=== PATIENT | female | born 1965 | race African-American/Black ===

== ENCOUNTER 2018-03-19 10:33 | Inpatient (IN) ==
[2018-03-19] MEDS ORDERED: ONDANSETRON 4 MG/2 ML VIAL IV STA (10:57)
[2018-03-19] MEDS ORDERED: fentaNYL 100 MCG/2 ML VIAL IV STA (10:59)
[2018-03-19 11:08] LABS: Basophils % 0.2 % (0.0-0.8); Eosinophils # 0.2 10*3/uL (0.0-0.87); Eosinophils % 1.9 % (0.00-10.9); Hematocrit 32.6 VOL% (35.7-47.0); Hemoglobin 11.1 GM/DL (12.0-16.0); Immature Granulocytes % 0.3 %; Immature Granulocytes Absolute 0.04 #; Lymphocytes # 1.4 10*3/uL (1.4-4.0); Lymphocytes % 12.4 % (21.3-54.2); Mean Corpuscular Hemoglobin 25 PG (27-34); Mean Corpuscular Volume 74.4 FL (87-102); Mean Platelet Volume 10.7 FL (9.6-12.0); Monocytes # 0.2 10*3/uL (0.11-0.8); Monocytes % 1.9 % (1.7-12.7); Neutrophils # 9.7 10*3/uL (1.4-7.4); Neutrophils % 83.3 % (38.7-73.9); Platelet Count 205 T/CUMM (130-400); Red Blood Count 4.38 MC/CUMM (3.8-5.5); Red Cell Distribution Width 13.9 % (9.3-17.3); White Blood Count 11.6 T/CUMM (4-12)
[2018-03-19 11:22] LABS: INR 1.1; PT Patient Result 11.2 SECS; Partial Thromboplastin Time 24.8 SECS (0-40)
[2018-03-19 11:50] LABS: Alanine Aminotransferase 23 U/L (13-56); Albumin 3.5 G/DL (3.4-5.0); Alkaline Phosphatase 117 U/L (45-117); Aspartate Amino Transferase 24 U/L (0-37); Blood Urea Nitrogen 17 MG/DL (7-18); Calcium 9.1 MG/DL (8.5-10.1); Glucose 147 MG/DL (74-106); Osmolality,Calculated 281.5 MOS/KG (273-304); Potassium 3.8 MMOL/L (3.5-5.1); Sodium 139 MMOL/L (136-145); Total Protein 7.8 G/DL (6.4-8.3)
[2018-03-19] MEDS ORDERED: KETOROLAC 30 MG/1 ML VIAL IV STA (11:51)
[2018-03-19] MEDS ORDERED: HYDROmorphone 2 MG/1 ML VIAL ONE (11:53)
[2018-03-19] MEDS ORDERED: HYDROmorphone 2 MG/1 ML VIAL IV STA (11:53)
[2018-03-19] MEDS ORDERED: SODIUM CHLORIDE 0.9% 1,000 ML IV STA (12:02)
[2018-03-19] MEDS ORDERED: ONDANSETRON 4 MG/2 ML VIAL IV PRN (12:21)
[2018-03-19] MEDS ORDERED: PROMETHAZINE 25 MG/1 ML VIAL IM PRN (12:21)
[2018-03-19 13:12] LABS: Apearance,Urine CLEAR (Clear); Bilirubin,Urine Negative (Negative); Blood, Urine Small mg/dL (Negative); Glucose,Urine (UA) Negative (Negative); Ketones,Urine Negative (Negative); Mucus,Urine Occasional /LPF (Occasional); Nitrite,Urine Negative (Negative); Protein,Urine Negative; RBC,Urine 3 /HPF (0-4); Squamous Epithelial Cell,Urine Occasional /HPF (0-10); Urine Color Straw (Yellow); Urine Specific Gravity 1.008 (1.001-1.035); Urine Urobilinogen < 2.0 EU/DL (0.2-1.0); WBC,Urine 14 /HPF (0-6)
[2018-03-19] MEDS ORDERED: cefTRIAXone 1,000 MG VIAL ONE (13:16)
[2018-03-19] MEDS: LACTATED RINGERS 1,000 ML IV SCH (13:26)
[2018-03-19] MEDS: cefTRIAXone 1,000 MG in SYRINGE 1 EACH IV SCH (13:51)
[2018-03-19] MEDS ORDERED: ACETAMINOPHEN INJ 1,000 MG in PREMIX 1 EACH IV ONE (14:23)
[2018-03-19] MEDS ORDERED: ACETAMINOPHEN 1,000 MG/100 ML VIAL IV ONE (14:23)
[2018-03-19] MEDS ORDERED: fentaNYL 100 MCG/2 ML VIAL ONE (14:24)
[2018-03-19] MEDS ORDERED: PROPOFOL 200 MG/20 ML VIAL IV ONE (14:24)
[2018-03-19] MEDS ORDERED: MIDAZOLAM 2 MG/2 ML VIAL ONE (14:24)
[2018-03-19] MEDS ORDERED: SUCCINYLCHOLINE 200 MG/10 ML VIAL ONE (14:25)
[2018-03-19] MEDS ORDERED: SEVOFLURANE 1 UNIT/15 MINUTE INH ONE (14:25)
[2018-03-19] MEDS ORDERED: ROCURONIUM 100 MG/10 ML VIAL IV ONE (14:25)
[2018-03-19] MEDS ORDERED: ONDANSETRON 4 MG/2 ML VIAL ONE (14:25)
[2018-03-19] MEDS ORDERED: METOPROLOL TARTRATE 5 MG/5 ML VIAL IV ONE (14:25)
[2018-03-19] MEDS ORDERED: PHENYLEPHRINE 1 MG/10 ML SYRINGE IV ONE (14:25)
[2018-03-19] MEDS ORDERED: MORPHINE 4 MG/1 ML VIAL IV PRN (16:15)
[2018-03-19] MEDS ORDERED: diphenhydrAMINE 50 MG/1 ML VIAL IV PRN (16:15)
[2018-03-19] MEDS: ACETAMINOPHEN 325 MG TABLET PO PRN (16:57)
[2018-03-19] MEDS: SODIUM CHLORIDE 0.9% 1,000 ML IV SCH (16:57)
[2018-03-20] MEDS: SODIUM CHLORIDE 0.9% 1,000 ML IV SCH ×3 (03:45→21:50)
[2018-03-20] MEDS: ACETAMINOPHEN 325 MG TABLET PO PRN ×3 (04:51→18:05)
[2018-03-20 07:06] LABS: Basophils % 0.2 % (0.0-0.8); Eosinophils # 0.1 10*3/uL (0.0-0.87); Hematocrit 27.8 VOL% (35.7-47.0); Hemoglobin 9.5 GM/DL (12.0-16.0); Immature Granulocytes % 0.6 %; Immature Granulocytes Absolute 0.08 #; Lymphocytes # 0.7 10*3/uL (1.4-4.0); Lymphocytes % 5.3 % (21.3-54.2); Mean Corpuscular HGB Conc 34.2 GM/DL (32-36); Mean Corpuscular Hemoglobin 26 PG (27-34); Mean Corpuscular Volume 75.3 FL (87-102); Mean Platelet Volume 11.3 FL (9.6-12.0); Monocytes # 0.4 10*3/uL (0.11-0.8); Monocytes % 3.2 % (1.7-12.7); Neutrophils # 11.3 10*3/uL (1.4-7.4); Neutrophils % 89.7 % (38.7-73.9); Platelet Count 148 T/CUMM (130-400); Red Blood Count 3.69 MC/CUMM (3.8-5.5); White Blood Count 12.6 T/CUMM (4-12)
[2018-03-20 07:31] LABS: Calcium 7.9 MG/DL (8.5-10.1); Osmolality,Calculated 277.7 MOS/KG (273-304); Potassium 4.1 MMOL/L (3.5-5.1)
[2018-03-20] MEDS: LACTATED RINGERS 1,000 ML IV SCH (12:50)
[2018-03-20] MEDS: cefTRIAXone 1,000 MG in SYRINGE 1 EACH IV SCH (12:50)
[2018-03-21] MEDS: SODIUM CHLORIDE 0.9% 1,000 ML IV SCH ×3 (04:02→20:21)
[2018-03-21] MEDS: ACETAMINOPHEN 325 MG TABLET PO PRN (07:55)
[2018-03-21] MEDS: cefTRIAXone 1,000 MG in SYRINGE 1 EACH IV SCH (12:00)
[2018-03-21] MEDS ORDERED: MAGNESIUM HYDROXIDE SUSP 30 ML UDCUP PO PRN (13:46)
[2018-03-22] MEDS: ACETAMINOPHEN 325 MG TABLET PO PRN (02:14)
[2018-03-22] MEDS: SODIUM CHLORIDE 0.9% 1,000 ML IV SCH (07:56)
[2018-03-22 08:31] LABS: Basophils % 0.2 % (0.0-0.8); Eosinophils # 0.3 10*3/uL (0.0-0.87); Eosinophils % 5.9 % (0.00-10.9); Hematocrit 24.7 VOL% (35.7-47.0); Hemoglobin 8.2 GM/DL (12.0-16.0); Immature Granulocytes % 0.3 %; Immature Granulocytes Absolute 0.02 #; Lymphocytes # 1.2 10*3/uL (1.4-4.0); Lymphocytes % 19.9 % (21.3-54.2); Mean Corpuscular HGB Conc 33.2 GM/DL (32-36); Mean Corpuscular Hemoglobin 25 PG (27-34); Mean Platelet Volume 11.4 FL (9.6-12.0); Monocytes # 0.5 10*3/uL (0.11-0.8); Monocytes % 8.8 % (1.7-12.7); Neutrophils # 3.7 10*3/uL (1.4-7.4); Neutrophils % 64.9 % (38.7-73.9); Platelet Count 129 T/CUMM (130-400); Red Blood Count 3.25 MC/CUMM (3.8-5.5); Red Cell Distribution Width 14.2 % (9.3-17.3); White Blood Count 5.8 T/CUMM (4-12)
[2018-03-22] MEDS ORDERED: LACTULOSE 20 GM/30 ML UDCUP PO ONE (08:36)
[2018-03-22 08:42] LABS: Potassium 4.1 MMOL/L (3.5-5.1)
[2018-03-22] MEDS: cefTRIAXone 1,000 MG in SYRINGE 1 EACH IV SCH (11:31)
[2018-03-22 15:34] VITALS: BP 128/88
== END 2018-03-22 15:15 | disposition home or self-care (01) | DRG 690 ==
LOC: N.ED 10:33 → N.SDSINP 12:21 → N.5E 13:06
PROVIDERS: ADMIT Surgery; ATTEND Surgery

== ENCOUNTER 2019-06-10 09:34 | Observation (INO) ==
[2019-06-10] MEDS ORDERED: ASPIRIN 325 MG TABLET PO STA (10:16)
[2019-06-10 10:33] LABS: Basophils % 0.6 % (0.0-0.8); Eosinophils # 0.4 10*3/uL (0.0-0.87); Eosinophils % 7.7 % (0.00-10.9); Hematocrit 36.5 VOL% (35.7-47.0); Hemoglobin 12.1 GM/DL (12.0-16.0); Immature Granulocytes % 0.4 %; Immature Granulocytes Absolute 0.02 #; Lymphocytes % 37.5 % (21.3-54.2); Mean Corpuscular HGB Conc 33.2 GM/DL (32-36); Mean Corpuscular Volume 74.5 FL (87-102); Mean Platelet Volume 10.4 FL (9.6-12.0); Monocytes % 5.8 % (1.7-12.7); Platelet Count 242 T/CUMM (130-400); Red Cell Distribution Width 14.7 % (9.3-17.3); White Blood Count 5.3 T/CUMM (4-12)
[2019-06-10 10:39] LABS: PT Patient Result 10.4 SECS (9.6-12.2); Partial Thromboplastin Time 27.7 SECS (20.8-36.0)
[2019-06-10 10:52] LABS: Apearance,Urine CLEAR (Clear); Bacteria,Urine Occasional /HPF (Few); Bilirubin,Urine Negative (Negative); Blood, Urine Small mg/dL (Negative); Glucose,Urine (UA) Negative (Negative); Ketones,Urine Negative (Negative); Mucus,Urine Occasional /LPF (Occasional); Nitrite,Urine Negative (Negative); Protein,Urine Negative; RBC,Urine 4 /HPF (0-4); Squamous Epithelial Cell,Urine Occasional /HPF (0-10); Urine Color Straw (Yellow); Urine Specific Gravity 1.008 (1.001-1.035); Urine Urobilinogen < 2.0 EU/DL (0.2-1.0)
[2019-06-10 10:54] LABS: Calcium 9.5 MG/DL (8.5-10.1)
[2019-06-10 10:58] LABS: Barbiturates Screen,Urine Negative (Negative); Benzodiazepines Screen,Urine Negative (Negative); Cannabinoid Screen,Urine Negative (Negative); Opiate Screen,Urine Negative (Negative); Phencyclidine Screen,Urine Negative (Negative)
[2019-06-10] MEDS ORDERED: MORPHINE 4 MG/1 ML VIAL IV PRN (11:45)
[2019-06-10] MEDS ORDERED: BISACODYL 5 MG TABLET PO PRN (11:45)
[2019-06-10] MEDS ORDERED: diphenhydrAMINE CAP 25 MG CAPSULE PO PRN (11:45)
[2019-06-10] MEDS ORDERED: ONDANSETRON 4 MG/2 ML VIAL IV PRN (11:45)
[2019-06-10] MEDS ORDERED: ACETAMINOPHEN 325 MG TABLET PO PRN (11:45)
[2019-06-10 12:09] LABS: Risk Ratio 3.57
[2019-06-10] MEDS ORDERED: hydroCHLOROthiazide 25 MG TABLET PO SCH (13:30)
[2019-06-10] MEDS: LISINOPRIL 20 MG TABLET PO SCH (16:39)
[2019-06-10] MEDS: ACETAMINOPHEN 325 MG TABLET PO PRN (17:04)
[2019-06-10] MEDS: ENOXAPARIN 40 MG/0.4 ML SYRINGE SUBCUT SCH (21:09)
[2019-06-10] MEDS: ATORVASTATIN 10 MG TABLET PO SCH (21:09)
[2019-06-10] MEDS: amLODIPine 10 MG TABLET PO SCH (23:48)
[2019-06-11] MEDS: ACETAMINOPHEN 325 MG TABLET PO PRN ×2 (00:17→13:57)
[2019-06-11] MEDS ORDERED: REGADENOSON 0.4 MG/5 ML SYRINGE IV ONE (13:31)
[2019-06-11] MEDS: POTASSIUM GLUCONATE 500 MG TABLET PO SCH (13:56)
[2019-06-11] MEDS: ASPIRIN EC 81 MG TABLET PO SCH (13:56)
[2019-06-11] MEDS: METOPROLOL TARTRATE 25 MG TABLET PO SCH (13:56)
[2019-06-11] MEDS: PANTOPRAZOLE 40 MG TABLET PO SCH (13:57)
[2019-06-11] MEDS: FERROUS SULFATE 325 MG TABLET PO SCH (13:57)
[2019-06-11] MEDS: LISINOPRIL 20 MG TABLET PO SCH (14:01)
[2019-06-11] MEDS ORDERED: ZALEPLON 5 MG CAPSULE PO PRN (19:55)
[2019-06-11] MEDS: ATORVASTATIN 10 MG TABLET PO SCH (20:13)
[2019-06-11] MEDS: amLODIPine 10 MG TABLET PO SCH (20:13)
[2019-06-11] MEDS: ENOXAPARIN 40 MG/0.4 ML SYRINGE SUBCUT SCH (20:14)
[2019-06-12] MEDS: LISINOPRIL 20 MG TABLET PO SCH (09:31)
[2019-06-12] MEDS: ASPIRIN EC 81 MG TABLET PO SCH (09:31)
[2019-06-12] MEDS: POTASSIUM GLUCONATE 500 MG TABLET PO SCH (09:32)
[2019-06-12] MEDS: PANTOPRAZOLE 40 MG TABLET PO SCH (09:32)
[2019-06-12] MEDS: METOPROLOL TARTRATE 25 MG TABLET PO SCH (09:32)
[2019-06-12] MEDS: FERROUS SULFATE 325 MG TABLET PO SCH (09:33)
[2019-06-12 12:27] VITALS: BP 122/75
== END 2019-06-12 13:30 | disposition home or self-care (01) ==
LOC: N.ED 09:34 → N.EDINP 09:34 → SUATTDRO 11:45 → N.2W 12:28
PROVIDERS: ADMIT Family Medicine; ATTEND Internal Medicine

== ENCOUNTER 2020-11-05 00:10 | Observation (INO) ==
[2020-11-05] MEDS ORDERED: ADENOSINE 6 MG/2 ML VIAL ONE (00:23)
[2020-11-05] MEDS ORDERED: ADENOSINE 6 MG/2 ML VIAL IV STA (00:26)
[2020-11-05] MEDS ORDERED: DILTIAZEM 25 MG/5 ML VIAL IV ONE (00:28)
[2020-11-05] MEDS ORDERED: DILTIAZEM 100 MG VIAL.ADD IV ONE (00:28)
[2020-11-05] MEDS ORDERED: DILTIAZEM 50 MG/10 ML VIAL IV STA (00:30)
[2020-11-05] MEDS ORDERED: MORPHINE 4 MG/1 ML VIAL IV STA (00:34)
[2020-11-05] MEDS ORDERED: ASPIRIN 325 MG TABLET PO STA (00:34)
[2020-11-05] MEDS ORDERED: ONDANSETRON 4 MG/2 ML VIAL IV STA (00:34)
[2020-11-05] MEDS ORDERED: DILTIAZEM INJ 100 MG in SODIUM CHLORIDE 0.9% 100 ML IV SCH (00:40)
[2020-11-05 00:44] LABS: Basophils % 0.2 % (0.0-0.8); Eosinophils # 0.1 10*3/uL (0.0-0.87); Eosinophils % 1.1 % (0.00-10.9); Hematocrit 39.5 VOL% (35.7-47.0); Immature Granulocytes % 0.4 %; Immature Granulocytes Absolute 0.04 #; Lymphocytes # 2.3 10*3/uL (1.4-4.0); Lymphocytes % 22.7 % (21.3-54.2); Mean Corpuscular HGB Conc 32.9 GM/DL (32-36); Mean Corpuscular Volume 78.2 FL (87-102); Mean Platelet Volume 10.3 FL (9.6-12.0); Monocytes % 4.1 % (1.7-12.7); Neutrophils % 71.5 % (38.7-73.9); Platelet Count 221 T/CUMM (130-400); Red Blood Count 5.05 MC/CUMM (3.8-5.5); Red Cell Distribution Width 15.3 % (9.3-17.3); White Blood Count 10.3 T/CUMM (4-12)
[2020-11-05 00:49] LABS: INR 0.9; PT Patient Result 10.1 SECS (9.8-11.9)
[2020-11-05 00:50] LABS: Alanine Aminotransferase 63 U/L (13-56); Albumin 3.8 G/DL (3.4-5.0); Alkaline Phosphatase 123 U/L (45-117); Aspartate Amino Transferase 44 U/L (0-37); Bilirubin,Total < 0.39 MG/DL (0.2-1.0); Blood Urea Nitrogen 24 MG/DL (7-18); Calcium 8.9 MG/DL (8.5-10.1); Carbon Dioxide 30 MMOL/L (21-32); Estimated Glom Filtration Rate 71 ML/MIN; Glucose 203 MG/DL (74-106); Osmolality,Calculated 282.8 MOS/KG (273-304); Sodium 137 MMOL/L (136-145); Total Protein 7.8 G/DL (6.4-8.2)
[2020-11-05] MEDS ORDERED: hydrALAZINE 20 MG/1 ML VIAL IV STA (01:15)
[2020-11-05] MEDS ORDERED: MORPHINE 4 MG/1 ML VIAL IV PRN (01:17)
[2020-11-05] MEDS ORDERED: NICOTINE 21 MG/24 HR PATCH TRANSDERM PRN (01:17)
[2020-11-05] MEDS ORDERED: DEXTROSE 50% 25 GM/50 ML VIAL IV PRN (01:17)
[2020-11-05] MEDS ORDERED: hydrALAZINE 20 MG/1 ML VIAL IV PRN (01:17)
[2020-11-05] MEDS ORDERED: ONDANSETRON 4 MG/2 ML VIAL IV PRN (01:17)
[2020-11-05] MEDS ORDERED: GLUCAGON 1 MG VIAL IM PRN (01:17)
[2020-11-05 01:24] LABS: Bilirubin,Urine Negative (Negative); Blood, Urine Small mg/dL (Negative); Glucose,Urine (UA) Negative (Negative); Ketones,Urine Negative (Negative); Nitrite,Urine Negative (Negative); Protein,Urine Negative; RBC,Urine 1 /HPF (0-4); Squamous Epithelial Cell,Urine Occasional /HPF (0-10); Urine Appearance CLEAR (Clear); Urine Color Colorless (Yellow); Urine Specific Gravity 1.004 (1.001-1.035); Urine Urobilinogen < 2.0 EU/DL (0.2-1.0); WBC,Urine 1 /HPF (0-6)
[2020-11-05 01:41] LABS: Barbiturates Screen,Urine Negative (Negative); Benzodiazepines Screen,Urine Negative (Negative); Cannabinoid Screen,Urine Negative (Negative); Opiate Screen,Urine Negative (Negative); Phencyclidine Screen,Urine Negative (Negative)
[2020-11-05] MEDS ORDERED: NITROGLYCERIN SL 0.4 MG TABLET SL PRN (06:02)
[2020-11-05] MEDS ORDERED: ENOXAPARIN 100 MG/ML SYRINGE SUBCUT ONE (06:23)
[2020-11-05] MEDS: lisinopriL 20 MG TABLET PO SCH (08:38)
[2020-11-05] MEDS: INSULIN REGULAR 100 UNIT/ML SUBCUT SCH ×2 (08:38→12:15)
[2020-11-05] MEDS: FERROUS SULFATE 325 MG TABLET PO SCH (08:39)
[2020-11-05] MEDS: METOPROLOL TARTRATE 25 MG TABLET PO SCH ×2 (10:08→22:02)
[2020-11-05] MEDS: DILTIAZEM CD 120 MG CAPSULE PO SCH (11:00)
[2020-11-05] MEDS: ACETAMINOPHEN 325 MG TABLET PO PRN (18:16)
[2020-11-05 19:04] LABS: CKMB % 1.7 %; Troponin I 0.031 NG/ML (0.00-0.045)
[2020-11-05] MEDS ORDERED: ATORVASTATIN 10 MG TABLET PO SCH (21:00)
[2020-11-06 05:20] LABS: Basophils % 0.5 % (0.0-0.8); Eosinophils # 0.2 10*3/uL (0.0-0.87); Eosinophils % 2.8 % (0.00-10.9); Hematocrit 35.2 VOL% (35.7-47.0); Hemoglobin 11.8 GM/DL (12.0-16.0); Immature Granulocytes % 0.5 %; Immature Granulocytes Absolute 0.03 #; Lymphocytes # 3.3 10*3/uL (1.4-4.0); Lymphocytes % 50.8 % (21.3-54.2); Mean Corpuscular HGB Conc 33.5 GM/DL (32-36); Mean Corpuscular Volume 78.4 FL (87-102); Mean Platelet Volume 10.1 FL (9.6-12.0); Monocytes % 4.6 % (1.7-12.7); Neutrophils % 40.8 % (38.7-73.9); Platelet Count 193 T/CUMM (130-400); Red Blood Count 4.49 MC/CUMM (3.8-5.5); Red Cell Distribution Width 15.3 % (9.3-17.3); White Blood Count 6.5 T/CUMM (4-12)
[2020-11-06 05:34] LABS: Calcium 8.3 MG/DL (8.5-10.1); Osmolality,Calculated 284.1 MOS/KG (273-304); Potassium 3.4 MMOL/L (3.5-5.1)
[2020-11-06 05:39] LABS: CKMB % 1.7 %; Troponin I 0.023 NG/ML (0.00-0.045)
[2020-11-06 05:41] LABS: Risk Ratio 2.65; VLDL CHOLESTEROL 22.4 MG/DL
[2020-11-06] MEDS ORDERED: POTASSIUM CHLORIDE 20 MEQ TABLET PO ONE (07:52)
[2020-11-06] MEDS ORDERED: ASPIRIN EC 81 MG TABLET PO SCH (09:00)
[2020-11-06] MEDS: ACETAMINOPHEN 325 MG TABLET PO PRN (09:40)
[2020-11-06] MEDS: DILTIAZEM CD 120 MG CAPSULE PO SCH (09:40)
[2020-11-06] MEDS: FERROUS SULFATE 325 MG TABLET PO SCH (09:40)
[2020-11-06] MEDS: METOPROLOL TARTRATE 25 MG TABLET PO SCH (09:40)
[2020-11-06] MEDS: lisinopriL 20 MG TABLET PO SCH (09:41)
[2020-11-06 12:35] VITALS: BP 135/82
== END 2020-11-06 13:05 | disposition home or self-care (01) ==
LOC: N.ED 00:10 → N.EDINP 00:10 → SUATTDRO 01:17 → N.TELES 02:10
PROVIDERS: ADMIT Internal Medicine; ATTEND Internal Medicine

== ENCOUNTER 2021-08-14 04:29 | Observation (INO) ==
[2021-08-14 06:49] LABS: Basophils % 0.3 % (0.0-0.8); Eosinophils # 0.1 10*3/uL (0.0-0.87); Hematocrit 36.5 VOL% (35.7-47.0); Immature Granulocytes % 0.5 %; Immature Granulocytes Absolute 0.05 #; Lymphocytes # 2.1 10*3/uL (1.4-4.0); Lymphocytes % 21.9 % (21.3-54.2); Mean Corpuscular HGB Conc 32.9 GM/DL (32-36); Mean Corpuscular Volume 77.2 FL (87-102); Neutrophils % 70.3 % (38.7-73.9); Platelet Count 135 T/CUMM (130-400); Red Blood Count 4.73 MC/CUMM (3.8-5.5); Red Cell Distribution Width 13.5 % (9.3-17.3); White Blood Count 9.5 T/CUMM (4-12)
[2021-08-14 07:13] LABS: Barbiturates Screen,Urine Negative (Negative); Benzodiazepines Screen,Urine Negative (Negative); Cannabinoid Screen,Urine Negative (Negative); Opiate Screen,Urine Negative (Negative); Phencyclidine Screen,Urine Negative (Negative)
[2021-08-14 07:14] LABS: Calcium 9.7 MG/DL (8.5-10.1); Osmolality,Calculated 303.9 MOS/KG (273-304); Potassium 4.6 MMOL/L (3.5-5.1)
[2021-08-14] MEDS ORDERED: ACETAMINOPHEN 500 MG TABLET PO STA (07:33)
[2021-08-14] MEDS ORDERED: SODIUM CHLORIDE 0.9% 1,000 ML IV STA ×2 (08:16→09:13)
[2021-08-14] MEDS ORDERED: INSULIN REGULAR 100 UNIT/ML IV STA (08:17)
[2021-08-14] MEDS ORDERED: ACETAMINOPHEN 325 MG TABLET PO PRN (10:02)
[2021-08-14] MEDS ORDERED: GLUCAGON 1 MG VIAL IM PRN (10:02)
[2021-08-14] MEDS ORDERED: ONDANSETRON 4 MG/2 ML VIAL IV PRN (10:02)
[2021-08-14] MEDS ORDERED: CALCIUM CARBONATE CHEW 500 MG TABLET PO PRN (10:02)
[2021-08-14] MEDS ORDERED: DOCUSATE SODIUM 100 MG CAPSULE PO PRN (10:02)
[2021-08-14] MEDS ORDERED: DEXTROSE 50% 25 GM/50 ML SYRINGE IV PRN (10:02)
[2021-08-14] MEDS ORDERED: INSULIN REGULAR 100 UNIT/ML IV ONE (10:09)
[2021-08-14] MEDS ORDERED: SODIUM CHLORIDE 0.9% 1,000 ML IV SCH (10:30)
[2021-08-14] MEDS: SODIUM CHLORIDE 0.9% 1,000 ML IV SCH ×2 (14:00→23:53)
[2021-08-14] MEDS: INSULIN REGULAR 100 UNIT/ML SUBCUT SCH (16:42)
[2021-08-14] MEDS ORDERED: ENOXAPARIN 40 MG/0.4 ML SYRINGE SUBCUT SCH (21:00)
[2021-08-14 22:28] LABS: Calcium 7.9 MG/DL (8.5-10.1); Osmolality,Calculated 281.4 MOS/KG (273-304)
[2021-08-15] MEDS: POTASSIUM CHLORIDE RIDER 10 MEQ/100 ML PREMIX IV PRN ×5 (00:39→08:15)
[2021-08-15] MEDS: INSULIN REGULAR 100 UNIT/ML SUBCUT SCH ×3 (01:39→11:18)
[2021-08-15 06:23] LABS: Basophils % 0.4 % (0.0-0.8); Eosinophils # 0.2 10*3/uL (0.0-0.87); Eosinophils % 2.5 % (0.00-10.9); Hematocrit 30.7 VOL% (35.7-47.0); Hemoglobin 10.2 GM/DL (12.0-16.0); Immature Granulocytes % 0.8 %; Immature Granulocytes Absolute 0.06 #; Lymphocytes # 2.7 10*3/uL (1.4-4.0); Lymphocytes % 37.4 % (21.3-54.2); Mean Corpuscular HGB Conc 33.2 GM/DL (32-36); Monocytes % 5.8 % (1.7-12.7); Neutrophils % 53.1 % (38.7-73.9); Platelet Count 141 T/CUMM (130-400); Red Blood Count 4.04 MC/CUMM (3.8-5.5); Red Cell Distribution Width 13.7 % (9.3-17.3); White Blood Count 7.1 T/CUMM (4-12)
[2021-08-15 06:51] LABS: Albumin 2.6 G/DL (3.4-5.0); Calcium 7.2 MG/DL (8.5-10.1); Osmolality,Calculated 288.4 MOS/KG (273-304); Potassium 3.7 MMOL/L (3.5-5.1)
[2021-08-15] MEDS ORDERED: POLYVINYL ALCOHOL 1.4% OPH SOLN 15 ML BOTTLE BOTH EYES PRN (08:40)
[2021-08-15] MEDS ORDERED: INSULIN GLARGINE 100 UNIT/ML SUBCUT SCH (09:00)
[2021-08-15] MEDS ORDERED: PSEUDOEPHEDRINE 30 MG TABLET PO PRN (09:11)
[2021-08-15] MEDS ORDERED: ACETAMINOPHEN 325 MG TABLET PO PRN (09:12)
[2021-08-15] MEDS: SODIUM CHLORIDE 0.9% 1,000 ML IV SCH (12:08)
[2021-08-15 12:16] VITALS: BP 113/63
[2021-08-15] MEDS ORDERED: FLUTICASONE 50 MCG NASAL SPRAY 16 GM BOTTLE BOTH NARES SCH (21:00)
== END 2021-08-15 15:30 | disposition home or self-care (01) ==
LOC: N.EDINP 04:29 → N.ED 04:29 → SUATTDRO 10:02 → N.OB 15:00
PROVIDERS: ADMIT Internal Medicine Geriatric Medicine; ATTEND Phlebology